=== PATIENT | male | born 1990 | race Caucasian/White ===

== ENCOUNTER 2016-08-17 11:57 | Emergency (ER) | payer OTHER ==
[2016-08-17] MEDS ORDERED: Cephalexin CAP* 500 MG PO ONE (12:55)
[2016-08-17] MEDS ORDERED: Tetan/Diph/Pertus SYR(Tdap)* 0.5 ML SYR(BOOSTRIX) use SYR IM ONE (12:55)
[2016-08-17] MEDS ORDERED: oxyCODONE/Acetamin 5/325 MG* TAB PO ONE (12:58)
--- NOTE | 2016-08-17 13:44 | RAD ---
Indication: Shot nail into RIGHT arm. Comparison: None. Technique: AP and lateral views RIGHT radius and ulna. REPORT AND IMPRESSION: Metallic nail projects from radial distal to ulnar proximal at the level of the mid forearm projecting up to 3.7 cm into the arm based on the AP view. While the metallic nail is visualized superimposed over the radius on both the AP and lateral views I suspect it is just dorsal to the bone as there is no osseous fragmentation to favor osseous penetration. Relative mild surrounding soft tissue swelling.
--- NOTE | 2016-08-17 14:26 | RAD ---
INDICATION: Status post removal of a foreign body, nail. COMPARISON: Comparison is made with a prior x-ray of the right forearm of the same date. TECHNIQUE: 2 views of the right forearm were obtained. FINDINGS: There has been removal of the nail noted within the soft tissues on the prior study. No fracture is seen. IMPRESSION: STATUS POST REMOVAL OF NAIL, NO EVIDENCE FOR FRACTURE.
[2016-08-17 14:49] VITALS: BP 128/87
--- NOTE | 2016-08-17 15:17 | ED ---
Upper Extremity Pain - HPI Summary HPI Summary: 26yo presents with nail in right forearm. He was putting up dry wall when the nail in the gun hit bark on wood and ricocheted into his forearm of his right UE. No numbness or tingling. Pain with movement of digits and wrist. Patient is left handed. He's otherwise healthy. Unsure of tetanus status. He denies any wrist, elbow, shoulder pain or injury. - History of Current Complaint Chief Complaint: EDExtremityUpper Stated Complaint: SHOT IN RT ARM W/NAIL GUN Time Seen by Provider: 08/17/16 12:45 - Allergies/Home Medications Allergies/Adverse Reactions: Allergies Allergy/AdvReac Type Severity Reaction Status Date / Time No Known Allergies Allergy Verified 08/17/16 12:25 PMH/Surg Hx/FS Hx/Imm Hx Previously Healthy: Yes Infectious Disease History: No Infectious Disease History: Denies: Traveled Outside the [place] in Last 30 Days - Family History Known Family History: Positive: None - denies heart disease/dm - Social History Occupation: Employed Full-time Lives: With Family Alcohol Use: None Substance Use Type: Reports: None Smoking Status (MU): Former Smoker Review of Systems Positive: Decreased ROM - right hand/wrist secondary to injury All Other Systems Reviewed And Are Negative: Yes Physical Exam - Summary Physical Exam Summary: GENERAL: Well appearing, No acute distress, well nourished. HEENT: Head atraumatic/normocephalic, EOMI/NISREEN, conjunctiva clear NECK: Supple with normal range of motion during conversation. MUSCULOSKELETAL: Right forearm with nail FB mid shaft radial side on dorsal/ radial side. Nail from distal to proximal. No active bleeding. Nail embedded through sweatshirt, t-shirt and skin. N/V intact distal to injury. Painful extension of digits. Minimal wrist ROM due to pain. No elbow, shoulder or wrist pain with palpation. SKIN: Warm and dry, skin color reflects adequate perfusion. NEUROLOGICAL: Patient is alert and appropriate. Cranial nerves are grossly intact. PSYCHIATRIC: Appropriate affect. Vital Signs On Initial Exam: Initial Vitals Temp Pulse Resp BP Pulse Ox 97.2 F 58 16 154/85 100 08/17/16 12:22 08/17/16 12:22 08/17/16 12:22 08/17/16 12:22 08/17/16 12:22 Procedures - Procedure Summary Procedure Summary: Shirt removed with cut out around nail. Time out done and skin prepped. Lidocaine 1% placed around nail site. Nail removed with traction and appears intact. Wound irrigated as best as possible, however site is small. Patient with FROM of digits with minimal tenderness. Patient with improved ROM of wrist , but continued pain with active ROM. Additionally, with pain with passive ROM of wrist, however less than active. Diagnostics - Vital Signs Vital Signs Temp Pulse Resp BP Pulse Ox 08/17/16 12:22 97.2 F 58 16 154/85 100 - Laboratory Lab Statement: Any lab studies that have been ordered have been reviewed, and results considered in the medical decision making process. - Radiology forearm right Xray Interpretation: Positive (See Comments) - metallic nail projects from radial distal to ulnar proximal at the level of the mid forearm projecting up to 3.7cm into the arm based on the AP view. While the metallic nail is visualized superimposed over the radius on both the AP and lateral views I suspect it is just dorsal to the bone as there is no osseous fragmentation to favor osseous penetration. relative mild surrounding soft tissue swelling. Radiology Interpretation Completed By: Radiologist forearm post Xray Interpretation: Positive (See Comments) - status post removal of nail, no evidence for fracture. Radiology Interpretation Completed By: Radiologist Re-Evaluation - Re-Evaluation First Eval Change: Improved - tolerated procedure well. Course/Dx - Course Assessment/Plan: 26yo male presents with nail in right forearm. Patient with xray finding c/w FB, but no bony involvement. Tetanus updated. Oral antibiotics given. FB removed with improved wrist ROM post removal. Patient continued to have some pain with ROM passive and active. N/v intact. Discussed with Dr. Donovan who will follow up in the office. Splint places and advised to keep inplace until cleared by ortho. Discussed high risk of infection and possible fb retained with shirt. Discussed if fever, chills, increased pain, increased pain with ROM, numbness/tingling, discharge to return for further evaluation. Patient voiced understanding. - Diagnoses Provider Diagnoses: Foreign body forearm, Need for Tdap vaccination - Physician Notifications Discussed Care Of Patient With: Dr. Chowdary saw and examined patient. Dr. Donovan , abx, splint, f/u in office. Discharge - Discharge Plan Condition: Improved Disposition: HOME Prescriptions: Cephalexin CAP* [Keflex CAP*] 500 mg PO QID #20 cap Patient Education Materials: Cephalexin (By mouth), Ibuprofen (By mouth), Soft Tissue Foreign Body (ED), Puncture Wound (ED), Splint Care (ED) Forms: *Work Release Referrals: Derrick Donovan MD [Medical Doctor] - 2 Days No Primary Care Phys,NOPCP [Primary Care Provider] - Additional Instructions: You need to have further evaluation as discussed. Please call the orthopedist for a follow up appointment. You need to return if fever, chills, increased pain, swelling, drainage, numbness/tingling or with any problems or concerns. As discussed this is at high risk for infection.
== END 2016-08-17 15:45 | disposition home or self-care (01) ==
LOC: ED 11:57
DX: S50.851A Superficial foreign body of right forearm, initial encounter (principal); W45.8XXA Other foreign body or object entering through skin, initial encounter; W29.4XXA Contact with nail gun, initial encounter; Y93.9 Activity, unspecified; Y92.9 Unspecified place or not applicable; Y99.9 Unspecified external cause status
CPT/HCPCS: 90471; 90715; 99282; A9270-GY

== ENCOUNTER 2019-06-19 12:46 | Emergency (ER) | payer OTHER ==
[2019-06-19 13:04] VITALS: BP 141/94
--- NOTE | 2019-06-19 13:54 | UC ---
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 UP-TO-DATE TETANUS 2018. - History of Current Complaint Chief Complaint: UCForeignBody Time Seen by Provider: 06/19/19 12:54 Stated Complaint: NAIL IN KNEE Hx Obtained From: Patient Onset/Duration: Sudden Onset, Lasting Hours, Still Present Skin Exposure Onset/Duration: Hours Ago Timing: Constant Onset Severity: Moderate Current Severity: Moderate Pain Intensity: 3 Pain Scale Used: 0-10 Numeric Location: Discrete - RIGHT KNEE Character: Pain Aggravating Factor(s): Touch Alleviating Factor(s): Nothing Related History: Foreign Body - Allergy/Home Medications Allergies/Adverse Reactions: Allergies Allergy/AdvReac Type Severity Reaction Status Date / Time No Known Allergies Allergy Verified 06/19/19 12:58 Home Medications: Home Medications NK [No Home Medications Reported] 06/19/19 [History Confirmed 06/19/19] PMH/Surg Hx/FS Hx/Imm Hx Previously Healthy: Yes - Surgical History Surgical History: None - Family History Known Family History: Positive: None - denies heart disease/dm - Social History Alcohol Use: None Substance Use Type: None Smoking Status (MU): Former Smoker Review of Systems All Other Systems Reviewed And Are Negative: Yes Constitutional: Positive: Negative Skin: Positive: Other - NAIL THROUGH SOFT TISSUE RIOGHT KNEE Respiratory: Positive: Negative Cardiovascular: Positive: Negative Gastrointestinal: Positive: Negative Physical Exam Triage Information Reviewed: Yes Appearance: Well-Appearing, No Pain Distress, Well-Nourished Vital Signs: Initial Vital Signs Temp 97.9 F 06/19/19 12:59 Pulse 66 06/19/19 12:59 Resp 16 06/19/19 12:59 BP 141/94 06/19/19 12:59 Pulse Ox 99 06/19/19 12:59 Vital Signs Reviewed: Yes Eyes: Positive: Conjunctiva Clear ENT: Positive: Hearing grossly normal Neck: Positive: Supple Respiratory: Positive: No respiratory distress, No accessory muscle use Cardiovascular: Positive: Pulses Normal Abdomen Description: Positive: Soft Musculoskeletal: Positive: ROM Intact, No Edema Neurological: Positive: Alert Psychological: Positive: Age Appropriate Behavior Skin: Positive: Other - 2 INCH NAIL PROJECTING THROUGH SOFT TISSUES OVERLYING P[place]LLA RIGHT KNEE Diagnostics - Radiology RIGHT KNEE XRAYS Radiology Interpretation Completed By: Radiologist Summary of Radiographic Findings: RADIOPAQUE FOREIGN BODY WITHIN THE PREPATELLAR SOFT TISSUE. NO ACUTE OSSEOUS INJURY Course/Dx - Course Course Of Treatment: NO BONY INJURY SEEN ON X-RAY TODAY HOWEVER THE NAIL APPEARS TO HAVE 2 BARBS WHICH WILL MAKE BACKING THE NAIL OUT DIFFICULT. SPOKE WITH ORTHOPEDICS WHO SUGGESTED PATIENT PRESENT TO THEIR OFFICE FOR IMMEDIATE EVALUATION. LIKELY WILL GO TO THE OR FOR FOREIGN BODY REMOVAL. - Diagnoses Provider Diagnosis: Acute foreign body of right knee - Physician Notification/Consults Discussed Patient Care With: Curry Hess Time Discussed With Above Provider: 13:45 Instructed by Provider To: Send To Office Now Discharge ED - Sign-Out/Discharge Documenting (check all that apply): Patient Departure All imaging exams completed and their final reports reviewed: Yes - Discharge Plan Condition: Stable Disposition: HOME Patient Education Materials: Soft Tissue Foreign Body (ED) Referrals: Curry Hess MD [Medical Doctor] - Additional Instructions: Go directly to the orthopedic office from here. They are expecting you. - Billing Disposition and Condition Condition: STABLE Disposition: Home
== END 2019-06-19 13:54 | disposition home or self-care (01) ==
LOC: UCEAST 12:46
DX: S80.251A Superficial foreign body, right knee, initial encounter (principal); Z87.891 Personal history of nicotine dependence; W29.4XXA Contact with nail gun, initial encounter; W45.8XXA Other foreign body or object entering through skin, initial encounter; Y92.9 Unspecified place or not applicable
CPT/HCPCS: 99211; G0463